=== PATIENT | female | born 1950 | race African-American/Black ===

== ENCOUNTER 2019-01-21 15:26 | Emergency (ER) | payer SELFPAY ==
[~2019-01-21] VITALS: Ht 165.1 cm; Wt 66.2 kg
--- NOTE | 2019-01-21 15:54 | NUR ---
SPOKE TO DONNELL FROM [facility]. SHE STATES THAT PT HAS BEEN D/C FOR ABOUT 3 WEEKS AND HAS NO ACCESS TO MEDICAL RECORDS UNTIL WEDNESDAY. SHE WAS UNABLE TO FAX ANY PAPERWORK.
== END 2019-01-21 16:48 | disposition home or self-care (01) ==
LOC: ER 15:26
DX: M25.551 Pain in right hip (principal); F17.200 Nicotine dependence, unspecified, uncomplicated; W18.39XA Other fall on same level, initial encounter; Y93.89 Activity, other specified; Y92.89 Other specified places as the place of occurrence of the external cause; Y99.8 Other external cause status
CPT/HCPCS: 72170-TC